=== PATIENT | female | born 1980 | race African-American/Black ===

== ENCOUNTER → 2017-06-16 | Outpatient (CLI) | payer BC ==
[~2017-06-16] MED LIST: NAPR1TAB9 PO
[2017-06-16 09:54] LABS: BASO % 0.3 %; BASO ABS # 0.06 K/uL (0-0.2); EOS % 0.9 %; HEMATOCRIT 39.7 % (37-47); HEMOGLOBIN 13.6 g/dL (12.0-16.0); IG# 0.09 K/uL (0.00-0.02); LYMPH % 11.9 %; LYMPH ABS # 2.61 K/uL (1.2-3.4); MEAN CELL VOLUME 90.6 fL (80-100); MEAN CORPUSCULAR HEMOGLOBIN 31.1 pg (25-34); MEAN CORPUSCULAR HGB CONC 34.3 g/dl (32-36); MEAN PLATELET VOLUME 10.5 fL (7.4-10.4); MONO % 5.6 %; MONO ABS # 1.23 K/uL (0.11-0.59); NEUT % 80.9 %; NEUT ABS # 17.76 K/uL (1.4-6.5); PLATELET COUNT 430 K/uL (130-400); RED CELL DISTRIBUTION WIDTH CV 12.4 % (11.5-14.5); RED CELL DISTRIBUTION WIDTH SD 41.3 fL (36.4-46.3); WHITE BLOOD COUNT 21.95 K/uL (4.8-10.8)
[2017-06-16 10:45] LABS: BLOOD UREA NITROGEN 10 mg/dl (7-18); CALCIUM 9.4 mg/dl (8.5-10.1); CARBON DIOXIDE 25 mmol/L (21-32); CHOLESTEROL 207 mg/dl (0-200); CREATININE 0.75 mg/dl (0.60-1.20); GLUCOSE 391 mg/dl (70-99); LDL CHOLESTEROL CALCULATED 147 mg/dl; POTASSIUM 3.7 mmol/L (3.5-5.1); SODIUM 133 mmol/L (136-145)
[2017-06-16 12:30] LABS: HEMOGLOBIN A1C 13.1 % (4.5-5.6)
== END | disposition home or self-care (01) ==
LOC: C.LAB1850 09:00
PROVIDERS: ATTEND Internal Medicine
DX: E11.65 Type 2 diabetes mellitus with hyperglycemia (principal); Z13.220 Encounter for screening for lipoid disorders; L73.9 Follicular disorder, unspecified

== ENCOUNTER → 2017-06-18 | Outpatient (CLI) | payer BC | END | disposition home or self-care (01) | LOC: C.LABSPEC 16:44 | PROVIDERS: ATTEND Surgery | DX: K61.0 Anal abscess (principal) ==

== ENCOUNTER → 2017-06-26 | Outpatient (CLI) | payer BC | END | disposition home or self-care (01) | LOC: C.LABSPEC 10:45 | PROVIDERS: ATTEND Physician Assistant | DX: Z01.419 Encounter for gynecological examination (general) (routine) without abnormal findings (principal) ==

== ENCOUNTER → 2017-06-26 | Outpatient (CLI) | payer BC ==
[2017-06-26 17:07] LABS: BLOOD UREA NITROGEN 11 mg/dl (7-18); CALCIUM 9.8 mg/dl (8.5-10.1); CARBON DIOXIDE 27 mmol/L (21-32); CREATININE 0.82 mg/dl (0.60-1.20); GLUCOSE 206 mg/dl (70-99); POTASSIUM 3.9 mmol/L (3.5-5.1); SODIUM 137 mmol/L (136-145)
[2017-06-26 17:58] LABS: HEP C IGG 13 YRS+OLDER_RFLX NEG (NEG)
== END | disposition home or self-care (01) ==
LOC: C.LAB1850 15:37
PROVIDERS: ATTEND Physician Assistant
DX: Z11.3 Encounter for screening for infections with a predominantly sexual mode of transmission (principal); E11.65 Type 2 diabetes mellitus with hyperglycemia

== ENCOUNTER → 2017-10-09 | Outpatient (CLI) | payer BC ==
[2017-10-09 10:24] LABS: BASO % 0.4 %; BASO ABS # 0.05 K/uL (0-0.2); EOS % 2.1 %; EOS ABS # 0.26 K/uL (0-0.5); HEMATOCRIT 39.1 % (37-47); HEMOGLOBIN 13.5 g/dL (12.0-16.0); IG# 0.05 K/uL (0.00-0.02); LYMPH ABS # 2.98 K/uL (1.2-3.4); MEAN CELL VOLUME 88.9 fL (80-100); MEAN CORPUSCULAR HEMOGLOBIN 30.7 pg (25-34); MEAN CORPUSCULAR HGB CONC 34.5 g/dl (32-36); MEAN PLATELET VOLUME 9.8 fL (7.4-10.4); MONO % 3.9 %; MONO ABS # 0.49 K/uL (0.11-0.59); NEUT % 69.2 %; NEUT ABS # 8.59 K/uL (1.4-6.5); PLATELET COUNT 428 K/uL (130-400); RED CELL DISTRIBUTION WIDTH CV 12.6 % (11.5-14.5); RED CELL DISTRIBUTION WIDTH SD 39.9 fL (36.4-46.3); WHITE BLOOD COUNT 12.42 K/uL (4.8-10.8)
[2017-10-09 10:54] LABS: BLOOD UREA NITROGEN 7 mg/dl (7-18); CALCIUM 9.3 mg/dl (8.5-10.1); CARBON DIOXIDE 30 mmol/L (21-32); CREATININE 0.69 mg/dl (0.60-1.20); GLUCOSE 191 mg/dl (70-99); POTASSIUM 4.1 mmol/L (3.5-5.1); SODIUM 134 mmol/L (136-145)
[2017-10-09 11:05] LABS: HEMOGLOBIN A1C 9.2 % (4.5-5.6)
== END | disposition home or self-care (01) ==
LOC: C.LAB1850 09:38
PROVIDERS: ATTEND Internal Medicine
DX: Z48.89 Encounter for other specified surgical aftercare (principal); D72.829 Elevated white blood cell count, unspecified; E11.65 Type 2 diabetes mellitus with hyperglycemia